=== PATIENT | female | born 1965 | race Caucasian/White ===

== ENCOUNTER 2016-08-27 13:50 | Day surgery (SDC) | payer OTHER ==
[~2016-08-27] VITALS: Ht 160 cm; Wt 50.8 kg
[~2016-08-27 13:50] MED LIST: 0.9% Sodium Chloride 1,000 ML IV PRN; BUPR100T8 PO; CITA20TA11 PO; MULT-1018 PO; Sodium Chloride LOK Flush 10 mL Syringe IV PRN; fentaNYL-PF 50 mCg/mL 2 mL Inj IVPUSH PRN
[2016-08-27 14:44] VITALS: BP 153/91; PULSE 54; RESP 10; O2SAT 100
[2016-08-27] MEDS ORDERED: RIZA10TA26 PO (14:44)
--- NOTE | 2016-08-27 15:36 | PCM.ENDEGD ---
EGD Date of Service: Aug 27, 2016 Physician Oscar Floyd MD Pre Procedure Diagnosis: Dysphagia Post Procedure Dx & Findings: Gastric erosion ulcer irregular Z line Procedure Esophagogastroduodenoscopy PROCEDURE IN DETAIL: The patient was placed in left lateral decubitus position. Bite block was placed. Scope lubricated, placed in posterior pharynx, passed through the cricopharyngeus and esophagus, slowly advanced the entire length of the gastric pouch, pylorus was identified, scope passed through the pylorus and descending portion of duodenum, withdrawn in the antrum, retroflexed upon itself for view of fundus and cardia. Scope was then withdrawn through the oropharynx. Esophagus showed normal shiny whitish mucosa to the Z line which is at 38 cm. On the Z line, there was one spot that was irregular. This was above the Z line. This was biopsied using the cold forceps. Please see picture. Stomach was unremarkable until the body of the stomach. Several erosions were noted. In in the antrum there was a 1 cm superficial ulcer. Biopsies obtained. Retroflexion was done. Stomach was easily inflatable and deflated wheezing air. Scope further advanced to the distal duodenum which revealed normal villous structures and normal folds. Impression Gastric erosion and ulcer status post biopsy Irregular Z line please see above for description Recommendation PPI Follow up with the GI clinic with PA Presedation Assessment Risks and Benefits Informed consent was obtained from the patient after all risks and benefits including but not limited to drug reaction, infection, pain, bleeding, perforation, as well as alternatives were discussed. Patient monitoring Continuous pulse oximetry, cardiac monitoring, blood pressure monitoring, IV access, and oxygen at 2L per nasal cannula. Periprocedural Fentanyl: Fentanyl 100mcg Incrementally Midazolam: Midazolam 5mg Incrementally Complications There were no periprocedural complications identified. Post Procedure Plan Post Procedure Recommendations 1. Restrict activities today. 2. Resume normal activities in the morning. 3. Resume medications. 4. GERD behavioral modification: - Avoid fatty, acidic, spicy, large meals - Do not lie down after meals - Do not eat or drink anything for at least 2 1/2 hours before going to bed at night - Discontinue tobacco and alcohol - Decrease or avoid caffeine - Avoid chocolate and mints - Decrease weight - Avoid aspirin and non steroidal anti-inflammatory agents (NSAID) such as Aleve, Advil, Mobic, Naproxen, Ibuprofen, etc 5. Add proton pump inhibitor. Take 30 minutes before 1st meal of the day. 6. Patient informed of normal post procedure side effects as bloating, drowsiness, blood streaking in the stool 7. If gastric biopsy reveal H.pylori, continue with appropriate treatment 8. If small bowel biopsy reveals celiac, continue with appropriate treatment 9. Please don't hesitate to call me with any questions Oscar Floyd MD Aug 27, 2016 15:36
[2016-08-27 16:14] VITALS: BP 147/79; PULSE 57; RESP 12; O2SAT 100
--- NOTE | 2016-08-27 16:14 | PCM.ENDCOL ---
Colonoscopy Date of Service: Aug 27, 2016 Physician Oscar Floyd MD Pre Procedure Diagnosis: screening Post Procedure Dx & Findings: polyps hemmorhoids Procedure Colonoscopy prep adequate withdrawal 19 min PROCEDURE IN DETAIL: After unremarkable rectal exam, Olympus video colonoscope was inserted into the anal canal and was advanced to the cecum. Landmarks were idenitified including ileocecal valave and the appendiceal orifice. scope was withdrawn systematically. In the cecum, there was a 3 mm polyp which was removed completely using cold snare. In the transverse colon there was a 6-7 mm polyp which was removed completely using cold snare. In the rectum retroflexion was done which showed significant hemorrhoids. Anal canal was inspected carefully on the way out and hemorrhoids noted. The mucosa of the cecum, ascending, transverse, descending, sigmoid, rectal mucosa lined with whitish, pink, smooth, glistening, normal-appearing mucosa, normal fine branching, underlying vascularity, normal haustra. The patient tolerated procedure and was transported to observation area. Impression Polyp 2 status post complete removal Hemorrhoids Recommendation Repeat colonoscopy 5 years Start taking Prilosec for the ulcer that was found in the stomach Surgical evaluation for hemorrhoids. Presedation Assessment Risks and Benefits Informed consent was obtained from the patient after all risks and benefits including but not limited to drug reaction, infection, pain, bleeding, perforation, as well as alternatives were discussed. Patient monitoring Continuous pulse oximetry, cardiac monitoring, blood pressure monitoring, IV access, and oxygen at 2L per nasal cannula. Complications There were no periprocedural complications identified. Post Procedure Plan Post Procedure Recommendations 1. Restrict activities today. 2. Resume normal activities in the morning. 3. Resume medications. 4. Patient informed of normal post procedure side effects as bloating, drowsiness, blood streaking in the stool. 5. average risk CRCS. If colon polyps come back as: -Hyperplastic- can repeat colonoscopy in 10 years -Tubular adenoma- repeat colonoscopy in 5 years -Tubulovillous/villous adenoma- repeat colonoscopy in 3 years -If any dysplasia- return to clinic as soon as possible 6. Please don't hesitate to call me with any questions. Oscar Floyd MD Aug 27, 2016 16:14
[2016-08-27 16:23] VITALS: BP 156/87; PULSE 51; RESP 14; O2SAT 100
[2016-08-27 16:33] VITALS: BP 154/85; PULSE 51; RESP 14; O2SAT 100
[2016-08-27 16:42] VITALS: BP 166/89; PULSE 50; RESP 14; O2SAT 100
--- NOTE | 2016-08-29 10:58 | PATH ---
SURGICAL PATHOLOGY Attending Physician:Oscar Floyd M.D. CASE STATUS: Signed Out PATIENT NAME: BORIS DODSON PID: [id number] : 1965 DATE COLLECTED:08/27/2016 00:00 SPECIMEN: 1: Gastric, Biopsy 2: Esophagus, Biopsy 3: Colon, Biopsy 4: Colon, Biopsy CLINICAL HISTORY: 1).GASTRIC EROSION BIOPSY 2).GASTRO-ESOPHAGEAL JUNCTION BIOPSY 3).CECAL POLYP 4).TRANSVERSE COLON POLYP FINAL DIAGNOSIS: 1.GASTRIC EROSION BIOPSY: MILD REACTIVE GASTROPATHY, ANTRAL MUCOSA, WITH EROSION. Negative for Helicobacter organisms. Negative for intestinal metaplasia. Negative for dysplasia and malignancy. 2.GASTROESOPHAGEAL JUNCTION BIOPSY: SMALL FRAGMENT OF SQUAMOUS MUCOSA WITH NO DIAGNOSTIC ALTERATIONS. Negative for intestinal metaplasia. Negative for dysplasia and malignancy. 3.CECAL POLYP: SESSILE SERRATED ADENOMA. 4.TRANSVERSE COLON POLYP: SESSILE SERRATED ADENOMA. ICD10 CODE K29.70 D12.0 D12.3 GROSS DESCRIPTION: The specimen is received in four formalin filled containers labeled with the patient's name. 1). The specimen is sublabeled "gastric erosion" and consists of a 0.3 with 0.2 x 0.2 CM portion of tissue which is entirely submitted in cassette 1A. 2). The specimen is sublabeled " GEJ " and consists of an extremely tiny less than 0.1 CM portion of tissue which is entirely submitted in cassette 2A. 3). The specimen is sublabeled "cecal polyp" and consists of a 0.5 x 0.4 x 0.3 CM portion of tissue which is entirely submitted in cassette 3A. 4). The specimen is sublabeled "transverse colon polyp" and consists of 2 portions of tissue which aggregate to 0.3 x 0.3 x 0.2 CM. The specimen is entirely submitted in cassette 4A. 08/28/2016 [facility] MICRO DESCRIPTION: See diagnosis. ICD-9 CODES: CPT CODES: 1: 06125 2: 61091 3: 90523 4: 94482 Electronically Signed Out Radha Funez MD [facility] Pathology [facility] [place] [address] Technical component performed at [facility], [facility] [address], [address]
== END 2016-08-27 23:59 | disposition home or self-care (01) ==
LOC: END 13:50
PROVIDERS: ATTEND Internal Medicine
DX: Z12.11 Encounter for screening for malignant neoplasm of colon (principal); D12.0 Benign neoplasm of cecum; D12.3 Benign neoplasm of transverse colon; K64.9 Unspecified hemorrhoids; K29.70 Gastritis, unspecified, without bleeding; R13.10 Dysphagia, unspecified; F32.9 Major depressive disorder, single episode, unspecified
CPT/HCPCS: 43239; 45385; 99153; G0500; J2250; J3010; J7030